=== PATIENT | female | born 1960 | race Caucasian/White ===

== ENCOUNTER 2024-02-26 18:47 | Emergency (ER) | payer SELFPAY ==
[~2024-02-26] VITALS: Ht 162.6 cm; Wt 72.6 kg
[2024-02-26 18:53] VITALS: BP 151/76; PULSE 74; RESP 16; TEMP 97.9; O2SAT 98
[2024-02-26] MEDS: KETOROLAC 30 MG/ML VIAL IM ONE (20:37)
[2024-02-26] MEDS: PROCHLORPERAZINE 10 MG/2 ML VIAL IM ONE (20:38)
[2024-02-26] MEDS ORDERED: IBUP-2213 PO (21:10)
[2024-02-26] MEDS ORDERED: ACET-10509 PO (21:10)
== END 2024-02-26 21:29 | disposition home or self-care (01) ==
LOC: MED 18:47
DX: G43.909 Migraine, unspecified, not intractable, without status migrainosus (principal); I10 Essential (primary) hypertension; R11.2 Nausea with vomiting, unspecified; Z79.899 Other long term (current) drug therapy
CPT/HCPCS: 70450; 96372; 99285; J0780; J1885